=== PATIENT | male | born 1990 | race Caucasian/White ===

== ENCOUNTER 2017-09-21 11:22 | Emergency (ER) | payer OTHER ==
[~2017-09-21] VITALS: Ht 175.3 cm; Wt 77.1 kg
[2017-09-21] MEDS ORDERED: ULTRACET PO (15:01)
== END 2017-09-21 16:21 | disposition home or self-care (01) ==
LOC: ER 11:22
DX: S52.122A Displaced fracture of head of left radius, initial encounter for closed fracture (principal); V29.3XXA Motorcycle rider (driver) (passenger) injured in unspecified nontraffic accident, initial encounter; Y93.55 Activity, bike riding; Y92.89 Other specified places as the place of occurrence of the external cause; Y99.8 Other external cause status

== ENCOUNTER 2018-01-15 15:40 | Outpatient (CLI) | payer OTHER ==
[~2018-01-15 15:40] MED LIST: ULTRACET PO
== END 2018-01-15 15:44 | disposition home or self-care (01) ==
LOC: RAD 15:40
DX: Z02.89 Encounter for other administrative examinations (principal)